=== PATIENT | male | born 1985 | race Asian ===

== ENCOUNTER 2018-02-14 07:36 | Emergency (ER) | payer MEDICAID, OTHER ==
[~2018-02-14] VITALS: Ht 170.2 cm; Wt 74.0 kg
[2018-02-14 08:22] VITALS: BP 123/80
[2018-02-14] MEDS ORDERED: LIDOCAINE HCL 1% 20ML VIAL (Pyxis) INJ INFIL ONE (09:30)
[2018-02-14] MEDS ORDERED: LIDOCAINE HCL/PF 1% 10 MG/ML 5ML VIAL INL ONE (10:00)
[2018-02-14] MEDS ORDERED: TETANUS, DIPHTHERIA, PERTUSSIS VAC/PF 0.5ML (>7YR OLD) IM ONE (10:15)
[2018-02-14] MEDS ORDERED: BACITRACIN ZINC OINT UDPKT TOP ONE (11:00)
== END 2018-02-14 11:49 | disposition home or self-care (01) ==
LOC: EDBD 07:36 → ER 07:36
DX: S01.511A Laceration without foreign body of lip, initial encounter (principal); S00.83XA Contusion of other part of head, initial encounter; F17.200 Nicotine dependence, unspecified, uncomplicated; Y04.1XXA Assault by human bite, initial encounter; Y93.89 Activity, other specified; Y92.89 Other specified places as the place of occurrence of the external cause; Y99.8 Other external cause status
CPT/HCPCS: 12011; 70486; 90471; 90715; 99284; J3490; Z7610